=== PATIENT | female | born 1980 | race African-American/Black ===

== ENCOUNTER 2022-10-31 13:49 | Outpatient (CLI) | payer BC | END 2022-10-31 13:50 | disposition home or self-care (01) | LOC: EEG 13:49 | PROVIDERS: ATTEND Nurse Practitioner Family | DX: R56.9 Unspecified convulsions (principal) | CPT/HCPCS: 95816; 95957 ==

== ENCOUNTER 2022-11-04 08:30 | Outpatient (CLI) | payer BC ==
[2022-11-04] MEDS ORDERED: Magnevist 469MG/ML 20 ML VIAL ONE (10:13)
== END 2022-11-04 08:31 | disposition home or self-care (01) ==
LOC: MRI 08:30
PROVIDERS: ATTEND Nurse Practitioner Family
DX: R56.9 Unspecified convulsions (principal)
CPT/HCPCS: 70553; A9579